=== PATIENT | female | born 1955 | race Two or more races ===

== ENCOUNTER → 2016-12-06 | Outpatient (CLI) | payer OTHER ==
[2016-12-06 12:36] LABS: APPEARANCE,URINE CLEAR; BILIRUBIN,URINE NEGATIVE (NEGATIVE); GLUCOSE, URINE >=500 mg/dL (NEGATIVE); KETONES,URINE NEGATIVE (NEGATIVE); LEUKOCYTE ESTERASE,URINE NEGATIVE (NEGATIVE); NITRITE,URINE NEGATIVE (NEGATIVE); PROTEIN,URINE NEGATIVE (NEGATIVE); URINE SPECIFIC GRAVITY 1.006; UROBILINOGEN,URINE NEGATIVE mg/dL (<2.0)
[2016-12-06 12:50] LABS: LIPASE 569.2 U/L (23-300)
== END ==
LOC: RAD 10:41
PROVIDERS: ATTEND Specialist
DX: R10.9 Unspecified abdominal pain (principal)
CPT/HCPCS: 36415; 76856; 81001; 82150; 83690; 87086

== ENCOUNTER → 2016-12-20 | Outpatient (CLI) | payer OTHER | LOC: RAD 09:14 | PROVIDERS: ATTEND Specialist | DX: R10.9 Unspecified abdominal pain (principal); B18.2 Chronic viral hepatitis C | CPT/HCPCS: 74170; 82565 ==

== ENCOUNTER 2017-02-20 11:41 | Emergency (ER) | payer OTHER ==
--- NOTE | 2017-02-20 13:31 | ER Document Report ---
ED Medical Screen (RME) - General Chief Complaint: Swelling Stated Complaint: HAND, ARM AND BODY PAIN, SWELLING Mode of Arrival: Ambulatory Information source: Patient TRAVEL OUTSIDE OF THE [place] IN LAST 30 DAYS: No - HPI Onset: Last week Onset/Duration: Gradual Quality of pain: Achy, Burning Severity: Moderate Associated Symptoms: Body/muscle aches, Leg swelling. denies: Chills, Fever, Nausea Exacerbated by: Movement Relieved by: Remaining still Similar symptoms previously: Yes Recently seen / treated by doctor: Yes - DR. STAUFFER, 02/09 - Related Data Smoking: Non-smoker, Quit greater than 1 year Frequency of alcohol use: None Drug Abuse: None Allergies/Adverse Reactions: No Known Allergies Allergy (Verified 02/20/17 12:10) Past Medical History - Social History Cigarette use (# per day): No Chew tobacco use (# tins/day): No Frequency of alcohol use: None Drug Abuse: None Lives with: Alone Family history: Reviewed & Not Pertinent - Past Medical History Cardiac Medical History: Reports: None Denies: Hx Coronary Artery Disease, Hx Heart Attack, Hx Hypertension Pulmonary Medical History: Reports: None Denies: Hx Asthma, Hx Bronchitis, Hx COPD, Hx Pneumonia Neurological Medical History: Reports: Other - NEUROPATHY. Denies: Hx Cerebrovascular Accident, Hx Seizures Endocrine Medical History: Reports: Hx Diabetes Mellitus Type 2 Renal/ Medical History: Reports: None. Denies: Hx Peritoneal Dialysis Malignancy Medical History: Reports: None GI Medical History: Reports: Hx Gastroesophageal Reflux Disease, Hx Hiatal Hernia Musculoskeltal Medical History: Reports Hx Arthritis Past Surgical History: Reports: Hx Abdominal Surgery - umb hernia repair, Hx Cholecystectomy, Hx Tubal Ligation. Denies: Hx Hysterectomy - Immunizations Hx Diphtheria, Pertussis, Tetanus Vaccination: Yes Review of Systems - Review of Systems Constitutional: No symptoms reported EENT: No symptoms reported Cardiovascular: Edema Respiratory: No symptoms reported Gastrointestinal: No symptoms reported Genitourinary: No symptoms reported Musculoskeletal: See HPI Skin: No symptoms reported Neurological/Psychological: See HPI Physical Exam - Vital signs Vitals: Temp Pulse Resp BP Pulse Ox 97.8 F 96 18 142/75 H 96 02/20/17 12:13 02/20/17 12:13 02/20/17 12:13 02/20/17 12:13 02/20/17 12:13 Interpretation: Hypertensive Course - Vital Signs Vital signs: Temp Pulse Resp BP Pulse Ox 97.8 F 96 18 142/75 H 96 02/20/17 12:13 02/20/17 12:13 02/20/17 12:13 02/20/17 12:13 02/20/17 12:13
[2017-02-20 14:14] LABS: ABSOLUTE EOSINOPHILS # (AUTO) 0.1 10^3/uL (0.0-0.6); ABSOLUTE LYMPHOCYTES (AUTO) 2.2 10^3/uL (0.5-4.7); ABSOLUTE MONOCYTES (AUTO) 0.9 10^3/uL (0.1-1.4); ABSOLUTE NEUT (AUTO) 5.2 10^3/uL (1.7-8.2); BASOPHILS % (AUTO) 0.1 % (0-2); EOSINOPHILS % (AUTO) 1.1 % (0-6); HEMATOCRIT 38.8 % (36.0-47.0); HEMOGLOBIN 13.2 g/dL (12.0-15.5); HGB HCT DIFFERENCE 0.8; MEAN CORPUSCULAR HEMOGLOBIN 28.8 pg (27.0-33.4); MEAN CORPUSCULAR HGB CONC 33.9 g/dL (32.0-36.0); MEAN CORPUSCULAR VOLUME 85 fl (80-97); MONOCYTES % (AUTO) 10.3 % (3-13); RED BLOOD COUNT 4.56 10^6/uL (3.72-5.28); RED CELL DISTRIBUTION WIDTH 12.2 % (11.5-14.0); SEGMENTED NEUTROPHILS % (AUTO) 62.5 % (42-78); WHITE BLOOD COUNT 8.3 10^3/uL (4.0-10.5)
[2017-02-20 14:21] LABS: APPEARANCE,URINE SLIGHTLY-CLOUDY; BILIRUBIN,URINE MODERATE (NEGATIVE); GLUCOSE, URINE 50 mg/dL (NEGATIVE); KETONES,URINE NEGATIVE (NEGATIVE); LEUKOCYTE ESTERASE,URINE SMALL (NEGATIVE); NITRITE,URINE NEGATIVE (NEGATIVE); PROTEIN,URINE 30 mg/dL (NEGATIVE); URINE SPECIFIC GRAVITY 1.029
[2017-02-20 14:24] LABS: ALANINE AMINOTRANSFERASE 53 U/L (9-52); ALBUMIN 3.6 g/dL (3.5-5.0); ALKALINE PHOSPHATASE 91 U/L (38-126); ANION GAP 13 (5-19); ASPARTATE AMINO TRANSFERASE 52 U/L (14-36); BILIRUBIN,DIRECT 0.6 mg/dL (0.0-0.4); BILIRUBIN,TOTAL 1.2 mg/dL (0.2-1.3); BLOOD UREA NITROGEN 9 mg/dL (7-20); CALCIUM 9.4 mg/dL (8.4-10.2); CARBON DIOXIDE 24 mmol/L (22-30); CHLORIDE 100 mmol/L (98-107); CREATINE KINASE 48 U/L (30-135); CREATININE RESULT 0.46 mg/dL (0.52-1.25); GLUCOSE 266 mg/dL (75-110); POTASSIUM 4.8 mmol/L (3.6-5.0); SODIUM 137.4 mmol/L (137-145); TOTAL PROTEIN 7.7 g/dL (6.3-8.2)
[2017-02-20 14:38] LABS: TROPONIN I < 0.012 ng/mL
[2017-02-20 14:55] LABS: ERYTHROCYTE SEDIMENTATION RATE 38 mm/hr (0-30)
--- NOTE | 2017-02-20 16:47 | ER Document Report ---
ED General - General Mode of Arrival: Ambulatory Information source: Patient TRAVEL OUTSIDE OF THE [place] IN LAST 30 DAYS: No <QASIM PIERRE - Last Filed: 02/20/17 17:16> <SRAVANI BOYD - Last Filed: 02/22/17 01:31> - General Chief Complaint: Swelling Stated Complaint: HAND, ARM AND BODY PAIN, SWELLING - HPI Notes: Patient arrives with complaints of swelling to both hands as well as both feet for the last few weeks. The patient states that her hands and feet hurt. She also complains of generalized body aches as well. She denies any fever. She denies any nausea, vomiting, diarrhea. She denies any new medications. She denies any rashes. She states that she has some mild tightness in her chest but denies any shortness of breath. She denies any headache, blurred vision, numbness tingling or weakness. She denies any recent trips or surgeries. She denies any history of DVT or PE. She denies any injuries. She denies any abdominal pain. No other complaints at this moment. (QASIM PIERRE) - Related Data Allergies/Adverse Reactions: No Known Allergies Allergy (Verified 02/20/17 16:06) Past Medical History - General Information source: Patient - Social History Smoking Status: Never Smoker Cigarette use (# per day): No Chew tobacco use (# tins/day): No Frequency of alcohol use: None Drug Abuse: None Lives with: Alone Family History: None Patient has suicidal ideation: No Patient has homicidal ideation: No - Past Medical History Cardiac Medical History: Reports: None Denies: Hx Coronary Artery Disease, Hx Heart Attack, Hx Hypertension Pulmonary Medical History: Reports: None Denies: Hx Asthma, Hx Bronchitis, Hx COPD, Hx Pneumonia Neurological Medical History: Reports: None, Other - NEUROPATHY. Denies: Hx Cerebrovascular Accident, Hx Seizures Endocrine Medical History: Reports: Hx Diabetes Mellitus Type 2 Renal/ Medical History: Reports: None. Denies: Hx Peritoneal Dialysis Malignancy Medical History: Reports: None GI Medical History: Reports: Hx Gastroesophageal Reflux Disease, Hx Hiatal Hernia Musculoskeltal Medical History: Reports Hx Arthritis Past Surgical History: Reports: Hx Abdominal Surgery - umb hernia repair, Hx Cholecystectomy, Hx Orthopedic Surgery - L ankle, Hx Tubal Ligation. Denies: Hx Hysterectomy - Immunizations Hx Diphtheria, Pertussis, Tetanus Vaccination: Yes <IGNACIOQASIM - Last Filed: 02/20/17 17:16> Review of Systems - Review of Systems -: Yes All other systems reviewed and negative <IGNACIOQASIM - Last Filed: 02/20/17 17:16> Physical Exam - General General appearance: Appears well, Alert - HEENT Head: Normocephalic Eyes: Normal Conjunctiva: Normal Pupils: PERRL Ears: Normal Mucous membranes: Normal Pharynx: Normal Neck: Normal - Respiratory Respiratory status: No respiratory distress Breath sounds: Normal - Cardiovascular Rhythm: Regular Heart sounds: Normal auscultation Murmur: No - Abdominal Inspection: Normal Distension: No distension Bowel sounds: Normal Tenderness: Nontender Organomegaly: No organomegaly - Back Back: Normal, Nontender - Extremities General upper extremity: Normal inspection, Nontender, Normal color, Normal ROM , Normal temperature General lower extremity: Normal inspection, Nontender, Normal color, Normal ROM , Normal temperature, Normal weight bearing. No: Tiffanie's sign - Neurological Neuro grossly intact: Yes Cognition: Normal Orientation: AAOx4 Simon Coma Scale Eye Opening: Spontaneous Simon Coma Scale Verbal: Oriented [place] Coma Scale Motor: Obeys Commands Simon Coma Scale Total: 15 Speech: Normal Motor strength normal: LUE, RUE, LLE, RLE Sensory: Normal - Psychological Associated symptoms: Normal affect, Normal mood - Skin Skin Temperature: Warm Skin Moisture: Dry Skin Color: Normal <IGNACIOQASIM - Last Filed: 02/20/17 17:16> <SRAVANI BOYD Shantel - Last Filed: 02/22/17 01:31> - Vital signs Vitals: Temp Pulse Resp BP Pulse Ox 97.8 F 96 18 142/75 H 96 02/20/17 12:13 02/20/17 12:13 02/20/17 12:13 02/20/17 12:13 02/20/17 12:13 - Extremities Notes: Mild swelling to the bilateral hands and feet. There is no redness. There is no rash. Normal pulse and sensation distally. Full range of motion. Normal capillary refill. No swelling of the arms or legs. (QASIM PIERRE) Course - Laboratory Result Diagrams: 02/20/17 13:40 02/20/17 13:40 - Diagnostic Test Radiology reviewed: Image reviewed, Reports reviewed - Chest x-ray unremarkable - EKG Interpretation by Me EKG shows normal: Sinus rhythm, [place], Intervals, QRS Complexes Rate: Normal <QASIM PIERRE - Last Filed: 02/20/17 17:16> - Laboratory Result Diagrams: 02/20/17 13:40 02/20/17 13:40 <SRAVANI BOYD Shantel - Last Filed: 02/22/17 01:31> - Re-evaluation Re-evalutation: 02/20/17 17:17 Patient's nontoxic with stable vitals. The patient arrives with complaints of bilateral hand and feet pain and swelling. There is minimal swelling noted to both hands and feet. Signs of infection. Kidney functions normal. No sign of congestive heart failure. She has no shortness of breath this time. No fever. EKG is unremarkable as well as the remainder of her exam. Should have an elevated blood sugar, she is a known diabetic, no sign of DKA. This point the patient will be discharged home with NSAIDs and a small supply Falconer with instructions to follow-up with her primary care doctor at the next available appointment. She should return if she develops increased pain, fever, swelling , chest pain or shortness of breath, or any further concerns. The patient is noted to have elevated blood pressure during today's emergency department visit. The patient was informed of this finding. The patient was instructed that this may be related to pre-hypertension and requires further evaluation with a primary care provider. The patient has no hypertensive symptoms at this time. The patient's emergency department workup and current diagnosis were explained to the patient and or family. Follow-up instructions were provided. Medications if prescribed were discussed. Instructions for when to return to the emergency department including specific worrisome symptoms were discussed with the patient and/or family. (QASIM PIERRE) - Vital Signs Vital signs: Temp Pulse Resp BP Pulse Ox 98.0 F 92 16 146/82 H 98 02/20/17 17:26 02/20/17 17:26 02/20/17 17:26 02/20/17 17:26 02/20/17 17:26 - Laboratory Laboratory results interpreted by me: 02/20/17 02/20/17 02/20/17 13:40 13:40 13:55 ESR 38 H Creatinine 0.46 L Glucose 266 H Direct Bilirubin 0.6 H AST 52 H ALT 53 H Urine Protein 30 H Urine Glucose (UA) 50 H Urine Bilirubin MODERATE H Urine Urobilinogen 4.0 H Ur Leukocyte Esterase SMALL H - EKG Interpretation by Me Additional EKG results interpreted by me: 02/20/17 16:46 Flipped T wave in lead 3, no ST elevation, no EKG to compare this to. (QASIM PIERRE) Discharge <QASIM PIERRE - Last Filed: 02/20/17 17:16> <SRAVANI BOYD - Last Filed: 02/22/17 01:31> - Discharge Clinical Impression: Bilateral hand swelling, Bilateral swelling of feet Condition: Stable Disposition: HOME, SELF-CARE Instructions: Arm Pain, Nonspecific ([facility]) Additional Instructions: Take medications as prescribed. Follow-up with your doctor at the next label appointment. Follow-up sooner for increased pain, fever, redness, swelling or difficulty breathing, any further concerns. Your blood pressure was elevated during today's visit. Have this rechecked with your doctor. The medication you were prescribed today may cause drowsiness. Do not drive or operate heavy machinery while taking this medication. Prescriptions: Diclofenac Sodium [Voltaren] 75 mg PO BID #20 tablet. Hydrocodone/Acetaminophen [Falconer 5-325 mg Tablet] 1 tab PO Q4 PRN #12 tablet PRN Reason: Forms: Elevated Blood Pressure Referrals: AP STAUFFER MD [Primary Care Provider] - Follow up as needed Cosign for MLP Consult
[2017-02-20] MEDS ORDERED: HYDROCODONE/ACETAMINOPHEN 5-325 MG TABLET PO ONE (16:59)
[2017-02-20 17:28] VITALS: BP 146/82
--- NOTE | 2017-02-20 19:12 | EKG REPORT ---
SEVERITY:- OTHERWISE NORMAL ECG - SINUS RHYTHM BORDERLINE LEFT AXIS DEVIATION : Confirmed by: Divina Mcknight MD 20-Feb-2017 19:11:07
== END 2017-02-20 17:36 | disposition home or self-care (01) ==
LOC: ER 11:41
DX: M79.89 Other specified soft tissue disorders (principal); R52 Pain, unspecified; M79.642 Pain in left hand; M79.641 Pain in right hand
CPT/HCPCS: 36415; 71020; 80053; 81001; 82550; 82553; 83880; 84484; 85025; 85652; 93005; 93010; 99285

== ENCOUNTER 2018-06-09 08:39 | Emergency (ER) | payer OTHER ==
[2018-06-09] MEDS ORDERED: KETOROLAC TROMETHAMINE 60 MG/2 ML SDV IM ONE (09:26)
[2018-06-09] MEDS ORDERED: ACETAMINOPHEN 325 MG TABLET PO ONE (09:26)
[2018-06-09] MEDS ORDERED: ONDANSETRON 4 MG TAB.RAPDIS PO ONE (09:26)
--- NOTE | 2018-06-09 09:33 | ER Document Report ---
ED General - General Chief Complaint: Flank Pain Stated Complaint: LEG AND BACK PAIN Time Seen by Provider: 06/09/18 09:21 TRAVEL OUTSIDE OF THE [place] IN LAST 30 DAYS: No - HPI Patient complains to provider of: Dysuria flank pain knee pain Notes: Patient coming on multiple complaints complaining of right knee pain states started at work felt a pop in her knee. Patient also complains of left flank pain ongoing for the last 2 3 weeks along with some trouble urinating. Patient denies any fevers chills states slightly nauseous today. Denies any diarrhea. Denies any recent trauma. Patient was able to drive herself to the ER. - Related Data Allergies/Adverse Reactions: No Known Allergies Allergy (Verified 06/09/18 08:40) Past Medical History - Social History Smoking Status: Current Every Day Smoker Chew tobacco use (# tins/day): No Frequency of alcohol use: Occasional Drug Abuse: None Family History: None Patient has suicidal ideation: No Patient has homicidal ideation: No - Past Medical History Cardiac Medical History: Denies: Hx Coronary Artery Disease, Hx Heart Attack, Hx Hypertension Pulmonary Medical History: Denies: Hx Asthma, Hx Bronchitis, Hx COPD, Hx Pneumonia Neurological Medical History: Denies: Hx Cerebrovascular Accident, Hx Seizures Endocrine Medical History: Reports: Hx Diabetes Mellitus Type 2 Renal/ Medical History: Denies: Hx Peritoneal Dialysis GI Medical History: Reports: Hx Gastroesophageal Reflux Disease, Hx Hiatal Hernia Musculoskeletal Medical History: Reports Hx Arthritis Past Surgical History: Reports: Hx Abdominal Surgery - umb hernia repair, Hx Cholecystectomy, Hx Orthopedic Surgery - L ankle, Hx Tubal Ligation. Denies: Hx Hysterectomy - Immunizations Hx Diphtheria, Pertussis, Tetanus Vaccination: Yes Review of Systems - Review of Systems Constitutional: No symptoms reported EENT: No symptoms reported Cardiovascular: No symptoms reported Respiratory: No symptoms reported Gastrointestinal: No symptoms reported, Nausea Genitourinary: Dysuria, Flank pain Female Genitourinary: No symptoms reported Musculoskeletal: No symptoms reported Skin: No symptoms reported Hematologic/Lymphatic: No symptoms reported Neurological/Psychological: No symptoms reported -: Yes All other systems reviewed and negative Physical Exam - Vital signs Vitals: Temp Pulse Resp BP Pulse Ox 98.3 F 87 16 126/63 H 87 L 06/09/18 08:44 06/09/18 08:44 06/09/18 08:44 06/09/18 08:44 07/21/18 08:44 Interpretation: Normal - General General appearance: Appears well, Alert - HEENT Head: Normocephalic, Atraumatic Eyes: Normal Pupils: PERRL - Respiratory Respiratory status: No respiratory distress Chest status: Nontender Breath sounds: Normal Chest palpation: Normal - Cardiovascular Rhythm: Regular Heart sounds: Normal auscultation Murmur: No - Abdominal Inspection: Normal Distension: No distension Bowel sounds: Normal Tenderness: Nontender Organomegaly: No organomegaly - Back Back: Normal, Nontender - Extremities General upper extremity: Normal inspection, Nontender, Normal color, Normal ROM , Normal temperature General lower extremity: Normal inspection, Normal color, Normal ROM, Normal temperature, Normal weight bearing. No: Nontender - Tenderness palpation of the right knee there is no laxity with valgus valgus anterior posterior drawer testing. Diffuse tenderness. Left knee unaffected., Tiffanie's sign - Neurological Neuro grossly intact: Yes Cognition: Normal Orientation: AAOx4 Simon Coma Scale Eye Opening: Spontaneous Simon Coma Scale Verbal: Oriented Simon Coma Scale Motor: Obeys Commands [place] Coma Scale Total: 15 Speech: Normal Motor strength normal: LUE, RUE, LLE, RLE Sensory: Normal - Psychological Associated symptoms: Normal affect, Normal mood - Skin Skin Temperature: Warm Skin Moisture: Dry Skin Color: Normal Course - Re-evaluation Re-evalutation: 06/09/18 10:59 The patient presents with abdominal pain without signs of peritonitis or other life-threatening or serious etiology. The patient appears stable for discharge and has been instructed to return immediately if the symptoms worsen in any way , or in 8-12hr if not improved for re-evaluation. The patient has been instructed to return if the symptoms worsen or change in any way. Laboratory studies showed elevated blood sugar no signs of acidosis. Patient was encouraged follow-up with primary care physician for further evaluation of her diabetes. Patient has no signs of a kidney stone urinary tract infection knee does not show any signs of fracture. More likely underlying knee sprain. Patient will be discharged home with a prescription for Ultram for severe pain is at the patient states she has been told by not to take anti- inflammatories and or acetaminophen due to her slightly elevated liver function test. Of note patient's triage vital signs were placed with SPO2 of 87%. This was a typographical error as that the triage sheet shows that her pulse ox was 95% and her heart rate was 87. Upon discharge patient's vital signs are normal. - Vital Signs Vital signs: Temp Pulse Resp BP Pulse Ox 98.3 F 87 16 126/63 H 87 L 06/09/18 08:44 06/09/18 08:44 06/09/18 08:44 06/09/18 08:44 06/09/18 08:44 - Laboratory Result Diagrams: 06/09/18 09:35 06/09/18 09:35 Laboratory results interpreted by me: 06/09/18 06/09/18 09:35 09:35 Glucose 369 H AST 79 H ALT 69 H Urine Glucose (UA) >=500 H Discharge - Discharge Clinical Impression: Flank pain Diabetes Qualifiers: Diabetes mellitus type: type 1 Diabetes mellitus complication status: without complication Qualified Code(s): E10.9 - Type 1 diabetes mellitus without complications Right knee pain Qualifiers: Chronicity: acute Qualified Code(s): M25.561 - Pain in right knee Condition: Good Disposition: HOME, SELF-CARE Instructions: Flank Pain ([facility]), Sprained Knee ([facility]), Oral Narcotic Medication ( [facility]), Ice Packs ([facility]), Warm Packs ([facility]) Additional Instructions: Your CT scan laboratory studies physical examination today did not show any signs of significant infection broken bones kidney stones anything that would require antibiotics or surgery at this time. I do believe he sprained her right knee. Would recommend ice heat elevation may take the Ultram for severe pain. Follow-up with your primary care physician in 1-2 weeks. Return to ER symptoms worsen. Prescriptions: Tramadol HCl [Ultram 50 mg Tablet] 50 mg PO ASDIR PRN #10 tablet PRN Reason: Forms: Return to Work
[2018-06-09 09:46] LABS: ABSOLUTE EOSINOPHILS # (AUTO) 0.1 10^3/uL (0.0-0.6); ABSOLUTE LYMPHOCYTES (AUTO) 1.8 10^3/uL (0.5-4.7); ABSOLUTE MONOCYTES (AUTO) 0.5 10^3/uL (0.1-1.4); BASOPHILS % (AUTO) 0.3 % (0-2); EOSINOPHILS % (AUTO) 1.2 % (0-6); HEMATOCRIT 36.7 % (36.0-47.0); HEMOGLOBIN 12.6 g/dL (12.0-15.5); LYMPHOCYTES % (AUTO) 28.1 % (13-45); MEAN CORPUSCULAR HEMOGLOBIN 29.7 pg (27.0-33.4); MEAN CORPUSCULAR HGB CONC 34.2 g/dL (32.0-36.0); MEAN CORPUSCULAR VOLUME 87 fl (80-97); PLATELET COUNT 222 10^3/uL (150-450); RED BLOOD COUNT 4.23 10^6/uL (3.72-5.28); RED CELL DISTRIBUTION WIDTH 12.5 % (11.5-14.0); SEGMENTED NEUTROPHILS % (AUTO) 62.4 % (42-78); TOTAL CELLS COUNTED % (AUTO) 100 %; WHITE BLOOD COUNT 6.5 10^3/uL (4.0-10.5)
--- NOTE | 2018-06-09 10:09 | RADIOLOGY REPORT (SQ) ---
EXAM DESCRIPTION: CT LTD RENAL STONE PROTOCOL ON COMPLETED DATE/TIME: 06/09/2018 9:47 am REASON FOR STUDY: left flank pain right knee pain COMPARISON: None. TECHNIQUE: CT scan of the abdomen and pelvis performed without intravenous or oral contrast. Images reviewed with lung, soft tissue, and bone windows. Reconstructed coronal and sagittal MPR images revi ewed. All images stored on PACS. All CT scanners at this facility use dose modulation, iterative reconstruction, and/or weight based d osing when appropriate to reduce radiation dose to as low as reasonably achievable (ALARA). [facility]: Dose Right [facility]: CareDose [facility]: Dose Right [facility]: Teradose 4D [facility]: Smart GuidePal RADIATION DOSE: CT Rad equipment meets quality standard of care and radiation dose reduction techniq ues were employed. CTDIvol: 7.6 mGy. DLP: 408 mGy-cm.mGy. LIMITATIONS: None. FINDINGS: LOWER CHEST: No significant findings. No nodules or infiltrates. NON-CONTRASTED LIVER, SPLEEN, ADRENALS: Evaluation limited by lack of IV contrast. No identified sign ificant masses. PANCREAS: No masses. No peripancreatic inflammatory changes. GALLBLADDER: Surgically absent. RIGHT KIDNEY AND URETER: No suspicious masses. Assessment limited by lack of IV contrast. No signif icant calcifications. No hydronephrosis or hydroureter. LEFT KIDNEY AND URETER: No suspicious masses. Assessment limited by lack of IV contrast. No signifi cant calcifications. No hydronephrosis or hydroureter. AORTA AND RETROPERITONEUM: No aneurysm. No retroperitoneal masses or adenopathy. BOWEL AND PERITONEAL CAVITY: No obvious masses or inflammatory changes. No free fluid. APPENDIX: Normal. PELVIS, BLADDER, AND ABDOMINAL WALL:No abnormal masses. No free fluid. Bladder normal. BONES: No significant findings. OTHER: No other significant finding. IMPRESSION: NO SIGNIFICANT OR ACUTE PROCESS IN THE ABDOMEN OR PELVIS. COMMENT: Quality ID # [id number]: Final reports with documentation of one or more dose reduction techniques (e.g., Automated exposure control, adjustment of the mA and/or kV according to patient size, use of iterative reconstruction technique) TECHNICAL DOCUMENTATION: JOB ID: [id number] [employer]- All Rights Reserved Reading location - IP/workstation name: [email or web address]
[2018-06-09 10:10] LABS: APPEARANCE,URINE CLEAR; BILIRUBIN,URINE NEGATIVE (NEGATIVE); COLOR,URINE YELLOW; GLUCOSE, URINE >=500 mg/dL (NEGATIVE); KETONES,URINE NEGATIVE (NEGATIVE); LEUKOCYTE ESTERASE,URINE NEGATIVE (NEGATIVE); NITRITE,URINE NEGATIVE (NEGATIVE); PROTEIN,URINE NEGATIVE (NEGATIVE); URINE SPECIFIC GRAVITY 1.021; UROBILINOGEN,URINE NEGATIVE mg/dL (<2.0)
--- NOTE | 2018-06-09 10:10 | RADIOLOGY REPORT (SQ) ---
EXAM DESCRIPTION: KNEE RIGHT 3 VIEWS COMPLETED DATE/TIME: 06/09/2018 9:56 am REASON FOR STUDY: left flank pain right knee pain COMPARISON: None. NUMBER OF VIEWS: Three views. TECHNIQUE: AP, lateral, and sunrise patella radiographic images acquired of the right knee. LIMITATIONS: None. FINDINGS: MINERALIZATION: Normal. BONES: No acute fracture or dislocation. No worrisome bone lesions. Patellar enthesopathy is presen t. JOINT: No effusion. SOFT TISSUES: No soft tissue swelling. No radio-opaque foreign body. OTHER: No other significant finding. IMPRESSION: Patellar enthesopathy, otherwise no abnormalities appreciated TECHNICAL DOCUMENTATION: JOB ID: [id number] [employer]- All Rights Reserved Reading location - IP/workstation name: [email or web address]
[2018-06-09 10:31] LABS: ALANINE AMINOTRANSFERASE 69 U/L (9-52); ALBUMIN 3.9 g/dL (3.5-5.0); ALKALINE PHOSPHATASE 66 U/L (38-126); ANION GAP 16 (5-19); ASPARTATE AMINO TRANSFERASE 79 U/L (14-36); BILIRUBIN,DIRECT 0.3 mg/dL (0.0-0.4); BILIRUBIN,TOTAL 0.7 mg/dL (0.2-1.3); BLOOD UREA NITROGEN 13 mg/dL (7-20); CALCIUM 8.8 mg/dL (8.4-10.2); CARBON DIOXIDE 22 mmol/L (22-30); CHLORIDE 102 mmol/L (98-107); GLUCOSE 369 mg/dL (75-110); LIPASE 264.7 U/L (23-300); POTASSIUM 4.2 mmol/L (3.6-5.0); SODIUM 139.5 mmol/L (137-145); TOTAL PROTEIN 7.8 g/dL (6.3-8.2)
[2018-06-09 10:57] VITALS: BP 113/77
== END 2018-06-09 11:01 | disposition home or self-care (01) ==
LOC: ER 08:39
DX: R10.9 Unspecified abdominal pain (principal); M25.561 Pain in right knee; E10.9 Type 1 diabetes mellitus without complications; R30.0 Dysuria; F17.200 Nicotine dependence, unspecified, uncomplicated; Z90.49 Acquired absence of other specified parts of digestive tract; Z98.51 Tubal ligation status
CPT/HCPCS: 99284; 96372; 36415; 83690; 85025; 80053; 81001; 73562; 76380; J1885; S0119

== ENCOUNTER → 2018-11-02 | Outpatient (CLI) | payer OTHER ==
[2018-11-02 12:12] LABS: ABSOLUTE BASOPHILS # (AUTO) 0.1 10^3/uL (0.0-0.2); ABSOLUTE EOSINOPHILS # (AUTO) 0.1 10^3/uL (0.0-0.6); ABSOLUTE LYMPHOCYTES (AUTO) 2.5 10^3/uL (0.5-4.7); ABSOLUTE MONOCYTES (AUTO) 0.6 10^3/uL (0.1-1.4); ABSOLUTE NEUT (AUTO) 3.9 10^3/uL (1.7-8.2); EOSINOPHILS % (AUTO) 1.2 % (0-6); HEMATOCRIT 38.6 % (36.0-47.0); HEMOGLOBIN 13.3 g/dL (12.0-15.5); LYMPHOCYTES % (AUTO) 34.9 % (13-45); MEAN CORPUSCULAR HEMOGLOBIN 29.6 pg (27.0-33.4); MEAN CORPUSCULAR HGB CONC 34.5 g/dL (32.0-36.0); MEAN CORPUSCULAR VOLUME 86 fl (80-97); MONOCYTES % (AUTO) 8.5 % (3-13); PLATELET COUNT 228 10^3/uL (150-450); RED CELL DISTRIBUTION WIDTH 12.5 % (11.5-14.0); SEGMENTED NEUTROPHILS % (AUTO) 54.4 % (42-78); TOTAL CELLS COUNTED % (AUTO) 100 %; WHITE BLOOD COUNT 7.1 10^3/uL (4.0-10.5)
[2018-11-02 12:39] LABS: ALANINE AMINOTRANSFERASE 62 U/L (9-52); ALBUMIN 4.1 g/dL (3.5-5.0); ALKALINE PHOSPHATASE 69 U/L (38-126); ANION GAP 10 (5-19); ASPARTATE AMINO TRANSFERASE 79 U/L (14-36); BILIRUBIN,DIRECT 0.4 mg/dL (0.0-0.4); BILIRUBIN,TOTAL 0.7 mg/dL (0.2-1.3); BLOOD UREA NITROGEN 14 mg/dL (7-20); CALCIUM 9.3 mg/dL (8.4-10.2); CARBON DIOXIDE 29 mmol/L (22-30); CHLORIDE 102 mmol/L (98-107); GLUCOSE 258 mg/dL (75-110); POTASSIUM 4.3 mmol/L (3.6-5.0); SODIUM 141.4 mmol/L (137-145); TOTAL PROTEIN 7.7 g/dL (6.3-8.2)
== END ==
LOC: OD 11:19
PROVIDERS: ATTEND Orthopaedic Surgery
DX: Z11.2 Encounter for screening for other bacterial diseases (principal); I10 Essential (primary) hypertension; E11.9 Type 2 diabetes mellitus without complications
CPT/HCPCS: 36415; 80053; 83036; 85025; 87070

== ENCOUNTER → 2018-12-19 | Outpatient (CLI) | payer OTHER ==
--- NOTE | 2018-12-19 16:52 | XCELERA REPORT ---
[address] [facility] [id number] Lower Extremity Venous Evaluation Procedure: Color flow and duplex imaging of the veins of the right lower extremity as well as the left Common Femoral vein. Right Sided Venous Evaluation Lucent, oval subcutaneous structure in calf. 4.4 x 1.6 x 4cms, non vascular. Normal vessel filling wall to wall, compression and augmentation as well as Colour flow down to the infrageniculate veins. Left Sided Venous Evaluation The left common femoral vein is fully compressible. Spontaneous and phasic flow is present in the left common femoral vein. Interpretation Summary No duplex evidence of DVT or obstruction in the right lower extremity nor in the left Common Femoral vein. A mass, probably cystic in the right calf, seen on ultrasound. Name: KAYLENE OLIVO Age: 63 yrs Gender: Female : 1955 Patient Status: Outpatient Patient Location: Study Date: 12/19/2018 10:03 AM Reason For Study: RLE PAIN Ordering Physician: JODI LIU Performed By: Simone Mariee : JODI LIU > Pablo Sterling
== END ==
LOC: SP 09:46
PROVIDERS: ATTEND Physician Assistant
DX: M79.661 Pain in right lower leg (principal)
CPT/HCPCS: 93971

== ENCOUNTER 2020-09-01 08:32 | Emergency (ER) | payer OTHER ==
[2020-09-01] MEDS ORDERED: MECLIZINE HCL 25 MG TABLET PO ONE (11:24)
--- NOTE | 2020-09-01 12:23 | ER Document Report ---
Entered by SOLE BOURNE SCRIBE 09/01/20 1120 Acting as scribe for:FABIÁN SIERRA MD ED General - General Chief Complaint: Dizziness Stated Complaint: NAUSEA,HEADACHE,DIZZINESS Time Seen by Provider: 09/01/20 10:17 Primary Care Provider: AP WIGGINS MD [Primary Care Provider] - Follow up as needed Information source: Patient Notes: This 64 year old female patient presents to the emergency department today with complaints of dizziness for the last three weeks. Patient reports this dizziness seems to be exacerbated with rapid head movement. She has been diagnosed with vertigo in the past, prescribed meclizine which she has taken for this dizziness with no real relief. She has been nauseated intermittently throughout the last 3 weeks. TRAVEL OUTSIDE OF THE [place] IN LAST 30 DAYS: No - Related Data Allergies/Adverse Reactions: No Known Allergies Allergy (Verified 09/01/20 10:21) Past Medical History - General Information source: Patient - Social History Smoking Status: Never Smoker Cigarette use (# per day): No Frequency of alcohol use: Occasional - wine Drug Abuse: None Lives with: Family Family History: Reviewed & Not Pertinent Patient has homicidal ideation: No Endocrine Medical History: Reports: Hx Diabetes Mellitus Type 2 GI Medical History: Reports: Hx Gastroesophageal Reflux Disease, Hx Hiatal Hernia Musculoskeletal Medical History: Reports Hx Arthritis - RA Past Surgical History: Reports: Hx Abdominal Surgery - umb hernia repair, Hx Cholecystectomy, Hx Genitourinary Surgery - bladder tack, Hx Orthopedic Surgery - L ankle, Hx Tubal Ligation. Denies: Hx Hysterectomy - Immunizations Hx Diphtheria, Pertussis, Tetanus Vaccination: Yes Review of Systems - Review of Systems Constitutional: No symptoms reported EENT: No symptoms reported Cardiovascular: See HPI, Dizziness Respiratory: No symptoms reported Gastrointestinal: See HPI, Nausea Genitourinary: No symptoms reported Female Genitourinary: No symptoms reported Musculoskeletal: No symptoms reported Skin: No symptoms reported Hematologic/Lymphatic: No symptoms reported Neurological/Psychological: No symptoms reported -: Yes All other systems reviewed and negative Physical Exam - Vital signs Vitals: Temp Pulse Pulse Ox 98.4 F 80 97 09/01/20 10:22 09/01/20 10:22 09/01/20 10:22 - Notes Notes: Physical Exam: General: Alert, appears well. When standing up with eyes closed, patient becomes off balance and has to reposition her feet to keep from falling backwards. HEENT: Normocephalic. Atraumatic. PERRL. Extraocular movements intact. Oropharynx clear. No lateral gaze nystagmus with rapid eye movement, there is very mild nystagmus with rapid head movement. Neck: Supple. Non-tender. Respiratory: No respiratory distress. Clear and equal breath sounds bilaterally. Cardiovascular: Regular rate and rhythm. Abdominal: Normal Inspection. Non-tender. No distension. Normal Bowel Sounds. Back: No gross abnormalities. Extremities: Moves all four extremities. Upper extremities: Normal inspection. Normal ROM. Lower extremities: Normal inspection. No edema. Normal ROM. Neurological: Normal cognition. AAOx4. Normal speech. Psychological: Normal affect. Normal Mood. Skin: Warm. Dry. Normal color. Course - Re-evaluation Re-evalutation: 09/01/20 14:24 After the patient had the MRI which was negative for stroke, she was reexamined and found to be a little improved from prior to receiving the meclizine. On further questioning the patient was taking 1 every 12 hours, and was occasionally taking one half of the 25 mg tablet. Today she was given 50 mg dose and that seemed to help quite a bit, and she is not drowsy from the medication. I am not completely convinced that her balance problems are only due to vertigo. She will follow up with Dr. Wiggins in the office and see if he thinks a neurology referral would be appropriate. - Vital Signs Vital signs: Temp Pulse Resp BP Pulse Ox 98.9 F 81 18 173/86 H 97 09/01/20 14:45 09/01/20 14:45 09/01/20 10:25 09/01/20 14:45 09/01/20 14:45 - Diagnostic Test Radiology reviewed: Image reviewed, Reports reviewed - Normal MRI of the brain without contrast. Discharge - Discharge Clinical Impression: Dizziness, Balance problem, Elevated blood pressure reading Condition: Stable Disposition: HOME, SELF-CARE Additional Instructions: Vertigo: Vertigo may be accompanied by nausea and vomiting or staggering. Vertigo is often caused by an irritation of the inner ear, in which case it is called labyrinthitis. It can also be a symptom of a degenerating inner ear, nerve damage, or brain injury. Your physician has evaluated you to determine whether any further testing is necessary. Vertigo is often treated with dramamine or meclizine. These medications are helpful, but stronger medication may be needed if you are vomiting. Rest in bed. You should not drive or operate machinery until completely better. It may take one to three weeks for recovery. If there are new symptoms, such as decreased hearing or vision, severe headache, weakness or faintness, or confusion, call the physician. High Blood Pressure: When your blood pressure was taken today it was elevated. Pre-hypertension/Hypertension: The patient has been informed that they may have pre-hypertension or Hypertension based on a blood pressure reading in the emergency department. I recommend that the patient call the primary care provider listed on their discharge instructions or a physician of their choice this week to arrange follow up for further evaluation of possible pre- hypertension or Hypertension. Sometimes, stress or illness causes a temporary elevation of your blood pressure. We suggest that you get your blood pressure measured three more times during the next few days to see if this is more than a temporary abnormality. If your blood pressure is greater than 150/90 on each occasion, you must have treatment. Some simple things you can do to help are: If you have blood pressure medicine but aren't using it regularly, start taking it again. Get some aerobic exercise for at least 20 minutes on a daily basis. (See your doctor before beginning a new exercise program.) Eat a low-fat diet. Lose excess weight. Avoid salty foods and avoid adding salt to any of the foods you eat. Avoid diet pills, decongestants, "energizing" herbs, and other medicines that elevate blood pressure. If left untreated, hypertension greatly enhances your risk for developing heart disease and strokes. Please don't ignore this problem. Your blood pressure was elevated in the emergency room today. You should check your blood pressure at home twice a day for the next several days to see if it returns back to normal, or if it may require treatment. Keep a log of the blood pressure in the time of day you are checking it. Increase the dose of meclizine you are taking 2 to tablets every 8-12 hours to control your symptoms. Do not drive if it makes you too drowsy. Follow-up with this week to review your response to the increased dosing, and to see if you might need to be referred to a neurologist for further evaluation of your balance problems. Also take the log of your blood pressure readings for him to review. RETURN TO THE EMERGENCY ROOM IF ANY NEW OR WORSENING SYMPTOMS. Referrals: AP WIGGINS MD [Primary Care Provider] - Follow up as needed I personally performed the services described in the documentation, reviewed and edited the documentation which was dictated to the scribe in my presence, and it accurately records my words and actions.
--- NOTE | 2020-09-01 13:30 | RADIOLOGY REPORT (SQ) ---
EXAM DESCRIPTION: MRI HEAD WITHOUT IMAGES COMPLETED DATE/TIME: 09/01/2020 12:07 pm REASON FOR STUDY: Dizzy, ataxia COMPARISON: None. TECHNIQUE: Multiplanar imaging includes non-contrasted T1, T2, FLAIR, and diffusion with ADC map seq uences. Images stored on PACS. LIMITATIONS: None. FINDINGS: ANATOMY: No anomalies. Normal vascular flow voids. Pituitary fossa normal. CSF SPACES: Normal in size and contour. No hemorrhage. CEREBRUM: Sulci and gyri normal in size and contour. Normal white matter signal on FLAIR imaging. No evidence of hemorrhage, mass, or extraaxial fluid collection. POSTERIOR FOSSA: No signal alteration. No hemorrhage. No edema, masses or mass effect. Internal tom tory canals, cerebello-pontine angles, mastoids normal. DIFFUSION IMAGING: Negative for acute or sub-acute infarction. ORBITS: No masses. Globes normal. PARANASAL SINUSES: No fluid levels. Mucosa normal. OTHER: No other significant finding. IMPRESSION: NORMAL MRI OF THE BRAIN WITHOUT INTRAVENOUS GADOLINIUM CONTRAST. EVIDENCE OF ACUTE STROKE: NO. TECHNICAL DOCUMENTATION: JOB ID: [id number] [employer]- All Rights Reserved Reading location - IP/workstation name: [email or web address]
[2020-09-01 14:47] VITALS: BP 173/86
== END 2020-09-01 14:55 | disposition home or self-care (01) ==
LOC: ER 08:32
DX: R42 Dizziness and giddiness (principal); R03.0 Elevated blood-pressure reading, without diagnosis of hypertension; R11.0 Nausea; R51.9 Headache, unspecified; E11.9 Type 2 diabetes mellitus without complications; Z90.49 Acquired absence of other specified parts of digestive tract
CPT/HCPCS: 70551; 99284